=== PATIENT | female | born 1970 | race Caucasian/White ===

== ENCOUNTER 2021-05-22 23:13 | Emergency (ER) | payer OTHER ==
[2021-05-22 23:18] VITALS: BP 145/78; PULSE 46; RESP 18; TEMP 97.9
--- NOTE | 2021-05-22 23:36 | ED ---
Recheck HPI - General Chief Complaint: Recheck/Abnormal Lab/Rx Stated Complaint: covid test Time Seen by Provider: 05/22/21 23:27 Source: patient Mode of arrival: ambulatory Limitations: no limitations - History of Present Illness Initial Comments: 51 year-old female patient presents requesting COVID-19 testing [place]. She denies any symptoms or known exposures. [place] her daughter to college. Declines any other testing. - Related Data Allergies Allergy/AdvReac Type Severity Reaction Status Date / Time No Known Allergies Allergy Verified 05/22/21 23:18 Review of Systems ROS Statement: Those systems with pertinent positive or pertinent negative responses have been documented in the HPI. ROS Other: All systems not noted in ROS Statement are negative. Past Medical History Past Medical History: No Reported History History of Any Multi-Drug Resistant Organisms: None Reported Past Surgical History: No Surgical Hx Reported Past Psychological History: No Psychological Hx Reported Smoking Status: Never smoker Past Alcohol Use History: None Reported Past Drug Use History: None Reported General Exam Limitations: no limitations General appearance: alert, in no apparent distress Neurological exam: Present: alert, oriented X3, CN II-XII intact Psychiatric exam: Present: normal affect, normal mood Skin exam: Present: warm, normal color. Absent: rash Course Vital Signs 05/22/21 23:15 Temperature 97.9 F Pulse Rate 46 L Respiratory 18 Rate Blood Pressure 145/78 O2 Sat by Pulse 100 Oximetry Medical Decision Making - Medical Decision Making 51 year-old female came in requesting COVID-19 testing. Denies having any symptoms or known exposures. Test result was negative. He was given a copy. Instructed to follow up with PCP as needed. My attending is Dr. Rodriguez. - Lab Data Lab Results 05/22/21 Range/Units 23:26 Coronavirus (PCR) Not Detected (Not Detectd) Disposition Clinical Impression: Encounter for laboratory testing for COVID-19 virus Disposition: HOME SELF-CARE Condition: Good Is patient prescribed a controlled substance at d/c from ED?: No Referrals: None,Stated [Primary Care Provider] - 1-2 days
== END 2021-05-23 00:24 | disposition home or self-care (01) ==
LOC: EC 23:13
DX: Z20.822 Contact with and (suspected) exposure to COVID-19 (principal)
CPT/HCPCS: 87635; 99282